=== PATIENT | male | born 1965 | race African-American/Black ===

== ENCOUNTER 2024-03-28 08:01 | Emergency (ER) | payer BC, SELFPAY ==
[2024-03-28 08:06] VITALS: BP 127/77; PULSE 72; RESP 16; TEMP 36.2; O2SAT 96; BMI 39.7
--- NOTE | 2024-03-28 08:16 | ED_ITS ---
HPI - Extremity Injury (Lower) General Time Seen by Provider: 08:16 Date Seen: 03/28/24 Chief Complaint: Extremity Pain/Injury, Lower Stated Complaint: big toe injury Time Seen by Provider: 03/28/24 08:15 Source: patient, RN notes reviewed and old records reviewed Mode of arrival: ambulatory Limitations: no limitations History of Present Illness HPI Narrative: 58-year-old male who presents today with pain and swelling of the right great toe. No known trauma, this started yesterday. Pain with walking. Denies fever, chills, nausea, vomiting. Pain is mostly in the distal joint although radiates up the bottom of the foot a little bit. Related Data Home Medications Medication Instructions Recorded Confirmed amlodipine 10 mg tablet 10 mg PO DAILY 03/28/24 03/28/24 aspirin 81 mg capsule 81 mg PO DAILY 03/28/24 03/28/24 chlorthalidone 50 mg tablet 50 mg PO DAILY 03/28/24 03/28/24 empagliflozin 25 mg tablet 25 mg PO DAILY 03/28/24 03/28/24 (Jardiance) hydralazine 50 mg tablet 200 mg PO DAILY 03/28/24 03/28/24 levothyroxine 25 mcg tablet 25 mcg PO DAILY 03/28/24 03/28/24 (Euthyrox) lisinopril 40 mg tablet 40 mg PO DAILY 03/28/24 03/28/24 metformin 500 mg tablet 2,000 mg PO DAILY 03/28/24 03/28/24 metoprolol succinate 200 mg 200 mg PO DAILY 03/28/24 03/28/24 capsule sprinkle, ext. release 24 hr (Kapspargo Sprinkle) rosuvastatin 10 mg tablet (Crestor) 10 mg PO DAILY 03/28/24 03/28/24 Allergies Allergy/AdvReac Type Severity Reaction Status Date / Time shellfish derived Allergy Unknown Verified 03/28/24 08:09 [facility] Social History Smoking Status: Current some day smoker What tobacco products do you use: cigars How often do you have a drink containing alcohol: never How often do you have six or more drinks on one occasion: Never AUDIT-C Alcohol total score: 0 Non-prescribed substance use: denies use Exam Narrative: Exam Narrative: General: Well-developed and well-nourished, no acute distress Head: Atraumatic and normocephalic Eyes: Pupils are equal reactive, extraocular motions intact, conjunctiva clear ENT: External nose and ears are normal, posterior pharynx without erythema or exudate Neck: No midline cervical tenderness, full spontaneous range of motion the neck, trachea midline, no adenopathy Heart: Regular rate and rhythm no murmurs or thrills Lungs: Clear to auscultation bilaterally without wheezes or crackles Abdomen: Soft, nontender, nondistended with active bowel sounds Musculoskeletal: Tenderness at the IP joint of the right great toe, no warmth, no definite diffusion, no erythema. Pain with passive movement of the toe. Neurologic: Awake, alert, and oriented x3, no gross focal neurologic deficits, cranial nerves intact as tested Psych: Mood and affect are appropriate Skin: No rashes Const: Vital Signs, click to edit/add: Vital Signs - 24 hr 03/28/24 08:06 Temperature 97.1 F L Pulse Rate [Pulse Oximeter] 72 Respiratory Rate 16 Blood Pressure [Ri ght Upper Arm] 127/77 Pulse Oximetry 96 Oxygen Delivery Me thod Room Air Course Course ED Course: Patient seen and examined, no prior records available for review. Patient presents with atraumatic pain of the right great toe. No warmth redness, no definite joint effusion on exam. There is tenderness around the IP joint, no MCP tenderness, no joint effusion of either of these sites. Concern for possible little gout, septic arthritis, cellulitis, strain/sprain. X-rays and labs are ordered. Reevaluation(s) Time of Reevaluation #1: 09:08 Reevaluation #1: Labs ordered and independently interpreted by me with normal white blood cell count, negative CRP, blood glucose is little bit elevated but otherwise basic panel is reassuring. X-ray of the toe independently interpreted by me negative for acute findings. In absence of large joint effusion, warmth or redness of the joint, and with normal labs, septic arthritis and crystal arthropathy or less likely, this most likely represents strain or sprain and can be treated symptomatically with Tylenol and ibuprofen, hard-soled shoe. No redness, tenderness, swelling around the nail to suggest paronychia. Vital Signs Vital signs: Initial Vital Signs Temperature 97.1 F L 03/28/24 08:06 Temperature Source Temporal Artery Scan 03/28/24 08:06 Pulse Rate 72 03/28/24 08:06 Respiratory Rate 16 03/28/24 08:06 Blood Pressure 127/77 03/28/24 08:06 Blood Pressure Mean 93 03/28/24 08:06 Blood Pressure Position Sitting 03/28/24 08:06 Pulse Oximetry 96 03/28/24 08:06 Oxygen Delivery Method Room Air 03/28/24 08:06 Vital Signs Temperature 97.1 F L 03/28/24 08:06 Pulse Rate 72 03/28/24 08:06 Respiratory Rate 16 03/28/24 08:06 Blood Pressure 127/77 03/28/24 08:06 Pulse Oximetry 96 03/28/24 08:06 Oxygen Delivery Method Room Air 03/28/24 08:06 Temperature 97.1 F L 03/28/24 08:06 Pulse Rate 72 03/28/24 08:06 Respiratory Rate 16 03/28/24 08:06 Blood Pressure 127/77 03/28/24 08:06 Pulse Oximetry 96 03/28/24 08:06 Oxygen Delivery Method Room Air 03/28/24 08:06 MDM - Extremity Injury (Lower) Lab Data Labs: Lab Results 03/28/24 Range/Units 08:36 WBC 8.86 (4.50-11.00) K/uL RBC 5.22 (4.30-5.90) m/uL Hgb 14.3 (13.5-17.5) gm/dL Hct 43.9 (37.0-53.0) % MCV 84 (80-100) fL MCH 27 (26-34) pg MCHC 33 (32-36) gm/dL RDW Coeff of Janice 12.8 (11.5-15.5) % Plt Count 201 (140-440) K/uL Neut % (Auto) 59.6 (42.0-72.0) % Lymph % (Auto) 31.7 (20-44) % [place] % (Auto) 4.9 (0.0-11.0) % Eos % (Auto) 3.5 (0.0-7.0) % Baso % (Auto) 0.1 (0.0-3.0) % Neut # (Auto) 5.28 (1.7-7.0) K/uL Lymph # (Auto) 2.81 (0.90-2.90) K/uL [place] # (Auto) 0.40 (0.00-0.90) K/UL Eos # (Auto) 0.31 (0.00-0.50) K/uL Baso # (Auto) 0.01 (0.00-0.30) K/uL Abs Immat Gran (auto) 0.02 (0.00-0.30) K/uL Imm/Tot Granulo (auto) 0.2 % Sodium 138 (135-149) mmol/L Potassium 3.9 (3.6-5.1) mmol/L Chloride 103 (96-114) mmol/L Carbon Dioxide 27 (20-32) mmol/L Anion Gap 8 (7-15) mEq/L BUN 29 (7-30) mg/dL Creatinine 0.8 (0.5-1.5) mg/dL Estimated Creat Clear 109.13 Estimated GFR 102 ml/min Glucose 278 H (60-115) mg/dL Calcium 9.4 (8.4-10.6) mg/dL C-Reactive Protein 0.5 (0.5-1.0) mg/dL Discharge Plan Discharge Clinical Impression: Sprain of great toe, Osteoarthritis of first metatarsophalangeal joint, Osteoarthritis of toe Patient Disposition: Home, Self-Care Condition: Stable Instructions: Foot Sprain (ED) Additional Instructions: Hard-soled shoe for come Tylenol and ibuprofen as needed for pain Elevate and ice as able Follow-up with your primary care provider in 5-7 days Activity Level: Activity as Tolerated Discharge Diet: Diabetic Prescriptions: No Action Kapspargo Sprinkle 200 mg capsule,sprinkle,ER 24hr 200 mg PO DAILY aspirin 81 mg capsule 81 mg PO DAILY metformin 500 mg tablet 2,000 mg PO DAILY chlorthalidone 50 mg tablet 50 mg PO DAILY levothyroxine [Euthyrox] 25 mcg tablet 25 mcg PO DAILY lisinopril 40 mg tablet 40 mg PO DAILY amlodipine 10 mg tablet 10 mg PO DAILY hydralazine 50 mg tablet 200 mg PO DAILY rosuvastatin [Crestor] 10 mg tablet 10 mg PO DAILY Jardiance 25 mg tablet 25 mg PO DAILY Follow Up/Referrals: Provider,Not a Local [Primary Care Provider] - Stand Alone Forms: MyHealth Info Instructions
--- NOTE | 2024-03-28 08:25 | XR_ITS ---
Patient: ANIKA ORTEGA Facility:?[facility] Patient ID:?[id number] Site Patient ID:?[id number]. Site :?[id number] Study:?XRay-Extremity Right GREAT TOE-03/28/2024 8:55:20 AM Ordering Physician:?DR. MAGANA Final Report: INDICATION: Pain and swelling in the great toe. TECHNIQUE: Three views of the right great toe. FINDINGS: No fracture, dislocation, or radiopaque foreign body in the great toe. Mild degenerative changes in the IP and MTP joints. Small chronic bone fragment along the medial IP joint. Dictated by Kevon Jett MD @ 03/28/2024 9:19:48 AM Signed by:?Kevon Jett MD @03/28/2024 9:19:48 AM (Electronic Signature)
[2024-03-28 08:51] LABS: Basophils Absolute Auto 0.01 K/uL (0.00-0.30); Basophils Percent Auto 0.1 % (0.0-3.0); Eosinophils Absolute Auto 0.31 K/uL (0.00-0.50); Eosinophils Percent Auto 3.5 % (0.0-7.0); Hematocrit 43.9 % (37.0-53.0); Hemoglobin* 14.3 gm/dL (13.5-17.5); Immature Granulocytes Abs Auto 0.02 K/uL (0.00-0.30); Immature Granulocytes Pct Auto 0.2 %; Lymphocytes Absolute Auto 2.81 K/uL (0.90-2.90); Lymphocytes Percent Auto 31.7 % (20-44); Mean Corpuscular HGB Conc 33 gm/dL (32-36); Mean Corpuscular Hemoglobin 27 pg (26-34); Mean Corpuscular Volume 84 fL (80-100); Monocytes Percent Auto 4.9 % (0.0-11.0); Neutrophils Absolute Auto 5.28 K/uL (1.7-7.0); Neutrophils Percent Auto 59.6 % (42.0-72.0); Platelet Count* 201 K/uL (140-440); RDW Coefficient of Variation % 12.8 % (11.5-15.5); Red Blood Count 5.22 m/uL (4.30-5.90); White Blood Count* 8.86 K/uL (4.50-11.00)
[2024-03-28 08:53] LABS: Slide Review Reflex No
[2024-03-28 08:56] LABS: Chloride* 103 mmol/L (96-114); Potassium* 3.9 mmol/L (3.6-5.1); Sodium* 138 mmol/L (135-149)
[2024-03-28 08:59] LABS: Creatinine* 0.8 mg/dL (0.5-1.5); Est. Creatinine Clearance* 109.13; Estimated Glomerular Filt Rate 102 ml/min
[2024-03-28 09:00] LABS: Anion Gap 8 mEq/L (7-15); Blood Urea Nitrogen* 29 mg/dL (7-30); Calcium* 9.4 mg/dL (8.4-10.6); Carbon Dioxide* 27 mmol/L (20-32); Glucose* 278 mg/dL (60-115)
[2024-03-28 09:03] LABS: C Reactive Protein* 0.5 mg/dL (0.5-1.0)
== END 2024-03-28 09:42 | disposition home or self-care (01) ==
PROVIDERS: Emergency Provider Family Medicine
DX: M19.071 Primary osteoarthritis, right ankle and foot (principal)
CPT/HCPCS: 36415; 73660; 80048; 85025; 86140; 99283; 99284